=== PATIENT | female | born 2000 ===

== ENCOUNTER 2022-05-16 04:48 | Inpatient (IN) | payer OTHER ==
[~2022-05-16] VITALS: Ht 162 cm; Wt 92.5 kg
[2022-05-16] MEDS ORDERED: MORPHINE SULFATE 5 MG/ML VIAL IVP PRN (05:05)
[2022-05-16] MEDS ORDERED: METHYLERGONOVINE 0.2 MG/ML AMP IM PRN ×2 (05:05→20:20)
[2022-05-16] MEDS ORDERED: ONDANSETRON 4 MG/2 ML VIAL IVP PRN (05:05)
[2022-05-16] MEDS ORDERED: OXYTOCIN 20 UNITS in LACTATED RINGERS 1,000 ML IV SCH ×2 (05:05→09:50)
[2022-05-16] MEDS ORDERED: CARBOPROST 250 MCG/ML AMP IM PRN (05:05)
[2022-05-16] MEDS ORDERED: PRETAB PO (05:12)
[2022-05-16] MEDS: LACTATED RINGERS 1,000 ML IV SCH ×3 (05:42→12:50)
[2022-05-16] MEDS ORDERED: MORPHINE SULFATE 10 MG/ML VIAL ONE ×2 (05:58→09:32)
[2022-05-16] MEDS ORDERED: ONDANSETRON 4 MG/2 ML VIAL ONE (05:59)
[2022-05-16 06:20] VITALS: BP 117/63
[2022-05-16 06:36] LABS: ALBUMIN 2.8 g/dL (3.4-5.0); ANION GAP 16.8 (8-16); CARBON DIOXIDE 22.3 mmol/L (21-32); CREATININE 0.8 mg/dL (0.6-1.3); POTASSIUM 4.1 mmol/L (3.5-5.1); TOTAL BILIRUBIN 0.3 mg/dL (0.0-1.0)
[2022-05-16 06:40] LABS: APPEARANCE,URINE SL CLOUDY (CLEAR); BILIRUBIN,URINE NEGATIVE (NEGATIVE); BLOOD, URINE 3+ (NEGATIVE); COLOR,URINE YELLOW (YELLOW); LEUKOCYTE ESTERASE ,URINE 3+ (NEGATIVE); NITRITE, URINE NEGATIVE (NEGATIVE); UGLUCOSE NEGATIVE (NEGATIVE)
[2022-05-16 06:55] LABS: PROTHROMBIN TIME 9.4 secs (10.8-13.4)
[2022-05-16 06:58] LABS: BASOPHILS % (AUTO) 0.1 % (0.0-2.0); EOSINOPHILS % (AUTO) 0.5 % (0.0-4.0); HEMATOCRIT 40.5 % (36-48); HEMOGLOBIN 13.5 g/dL (12.0-16.0); LYMPHOCYTES # (AUTO) 1.8 K/uL (2.5-16.5); LYMPHOCYTES % (AUTO) 18.9 % (20.5-51.1); MEAN CORPUSCULAR HEMOGLOBIN 28 pg (27-31); MEAN CORPUSCULAR HGB CONC 33 g/dL (33-37); MEAN CORPUSCULAR VOLUME 83.7 fL (80-94); MONOCYTES # (AUTO) 0.6 K/uL (0.8-1.0); MONOCYTES % (AUTO) 6.8 % (1.7-9.3); NEUTROPHILS % (AUTO) 73.7 % (42.2-75.2); PLATELET COUNT (AUTO) 213 K/uL (140-450); RED BLOOD CELL COUNT(AUTO) 4.84 MIL/uL (4.20-5.40); RED CELL DISTRIBUTION WIDTH 14.3 % (11.6-13.7); WHITE BLOOD COUNT (AUTO) 9.5 K/uL (4.5-11.0)
[2022-05-16 07:11] LABS: RBC,URINE 11-20 (MOD) /HPF (0-5); WBC,URINE 16-25 (MOD) /HPF (0-5)
[2022-05-16 07:13] LABS: FINE GRANULAR CASTS,URINE 0-10 /LPF (None Seen)
[2022-05-16] MEDS ORDERED: OXYTOCIN 20 UNITS/LR PREMIX 1,000 ML IV ONE (09:51)
--- NOTE | 2022-05-16 10:14 | NUR ---
PATIENT HAS BEEN SCREENED AND CATEGORIZED LOW NUTRITION RISK. PATIENT WILL BE SEEN WITHIN 7 DAYS OF ADMISSION. 05/23/22 REVIEWED BY [address]
[2022-05-16] MEDS ORDERED: ROPIVACAINE 0.2%/NS PREMIX 200 ML EPI ONE (11:38)
[2022-05-16] MEDS ORDERED: fentaNYL citrate 0.05 MG/ML VIAL ONE (11:39)
[2022-05-16] MEDS ORDERED: LACTATED RINGERS 500 ML IV ONE (19:05)
[2022-05-16] MEDS ORDERED: LACTATED RINGERS 1,000 ML IV SCH (19:05)
[2022-05-16] MEDS ORDERED: OXYTOCIN 10 UNITS/ML VIAL IM PRN (20:20)
[2022-05-16] MEDS ORDERED: MEASLES, MUMPS, AND RUBELLA 1 VIAL SQVAC ONE (20:20)
[2022-05-16] MEDS ORDERED: TEMAZEPAM 15 MG CAP PO PRN (20:20)
[2022-05-16] MEDS ORDERED: BENZOCAINE/MENTHOL 20%-0.5% 60 GM CAN TP PRN (20:20)
[2022-05-16] MEDS ORDERED: DOCUSATE SOD/SENNA 50/8.6 MG 1 TAB PO SCH (21:00)
[2022-05-17] MEDS: HYDROcodone/APAP 5/325 MG 1 TAB TAB PO PRN ×2 (01:11→19:33)
[2022-05-17] MEDS: IBUPROFEN 800 MG TAB PO PRN ×2 (03:51→11:21)
[2022-05-17 05:58] LABS: HEMATOCRIT 31.6 % (36-48); HEMOGLOBIN 10.8 g/dL (12.0-16.0)
[2022-05-18] MEDS ORDERED: MEASLES, MUMPS, AND RUBELLA 1 VIAL SQVAC ONE (04:05)
[2022-05-18] MEDS: HYDROcodone/APAP 5/325 MG 1 TAB TAB PO PRN (04:10)
[2022-05-18] MEDS: IBUPROFEN 800 MG TAB PO PRN (11:52)
[2022-05-18] MEDS ORDERED: DOCU-299 PO (14:50)
[2022-05-18] MEDS ORDERED: IBUP-2213 PO (14:52)
[2022-05-18] MEDS ORDERED: FERR325E14 PO (14:54)
[2022-05-18] MEDS ORDERED: ACET-10509 PO (23:58)
== END 2022-05-18 17:45 | disposition home or self-care (01) | DRG 807 ==
LOC: MLD 04:48 → MFCC 22:00
PROVIDERS: ADMIT Obstetrics & Gynecology; ATTEND Obstetrics & Gynecology
PROC: 10E0XZZ Delivery of Products of Conception, External Approach (ICD-10-PCS; principal; 2022-05-16)
PROC: 0KQM0ZZ Repair Perineum Muscle, Open Approach (ICD-10-PCS; 2022-05-16)
PROC: 3E0R3BZ Introduction of Anesthetic Agent into Spinal Canal, Percutaneous Approach (ICD-10-PCS; 2022-05-16)
PROC: 00HU33Z Insertion of Infusion Device into Spinal Canal, Percutaneous Approach (ICD-10-PCS; 2022-05-16)
DX: O42.92 Full-term premature rupture of membranes, unspecified as to length of time between rupture and onset of labor (principal); Z37.0 Single live birth; O69.1XX0 Labor and delivery complicated by cord around neck, with compression, not applicable or unspecified; O70.1 Second degree perineal laceration during delivery; Z20.822 Contact with and (suspected) exposure to COVID-19; Z3A.38 38 weeks gestation of pregnancy; O90.81 Anemia of the puerperium
CPT/HCPCS: 36415; 80053; 81001; 85018; 85025; 85610; 85730; 86592; 86886; 86900; 86901; 87086; 90707; 90715; J2270; J2405; J2590; J2795; J3010; J7120

== ENCOUNTER 2022-05-18 21:23 | Emergency (ER) | payer MEDICAID, OTHER ==
[~2022-05-18] VITALS: Ht 165.1 cm; Wt 89.8 kg
[~2022-05-18 21:23] MED LIST: DOCU-299 PO; FERR325E14 PO; IBUP-2213 PO; PRETAB PO
[2022-05-18 21:34] VITALS: BP 142/72
--- NOTE | 2022-05-18 21:45 | NUR ---
PT TAKEN TO BED 8
[2022-05-18] MEDS ORDERED: ACETAMINOPHEN 325 MG SUPP RC ONE (22:35)
[2022-05-18] MEDS ORDERED: NACL 0.9% 500 ML IV ONE (22:35)
[2022-05-18] MEDS ORDERED: ACETAMINOPHEN EXTRA STRENGTH 500 MG TAB PO ONE (22:45)
[2022-05-18 22:51] LABS: EOSINOPHILS % (AUTO) 0.1 % (0.0-4.0); HEMATOCRIT 36.6 % (36-48); HEMOGLOBIN 12.4 g/dL (12.0-16.0); LYMPHOCYTES # (AUTO) 0.6 K/uL (2.5-16.5); LYMPHOCYTES % (AUTO) 7.5 % (20.5-51.1); MEAN CORPUSCULAR HEMOGLOBIN 29 pg (27-31); MEAN CORPUSCULAR HGB CONC 34 g/dL (33-37); MEAN CORPUSCULAR VOLUME 84.5 fL (80-94); MONOCYTES % (AUTO) 0.6 % (1.7-9.3); NEUTROPHILS # (AUTO) 7.7 K/uL (1.8-7.7); NEUTROPHILS % (AUTO) 91.8 % (42.2-75.2); PLATELET COUNT (AUTO) 198 K/uL (140-450); RED BLOOD CELL COUNT(AUTO) 4.33 MIL/uL (4.20-5.40); RED CELL DISTRIBUTION WIDTH 14.2 % (11.6-13.7); WHITE BLOOD COUNT (AUTO) 8.4 K/uL (4.5-11.0)
[2022-05-18 23:24] LABS: ALBUMIN 2.6 g/dL (3.4-5.0); ANION GAP 17.7 (8-16); CARBON DIOXIDE 22.1 mmol/L (21-32); CREATININE 0.8 mg/dL (0.6-1.3); POTASSIUM 3.8 mmol/L (3.5-5.1); TOTAL BILIRUBIN 0.4 mg/dL (0.0-1.0)
[2022-05-18] MEDS ORDERED: ACET-10509 PO (23:58)
[2022-05-19] VITALS: BP 104/57
--- NOTE | 2022-05-19 09:05 | NUR ---
LATE ENTRY-IVF/IVP MEDS
== END 2022-05-19 00:02 | disposition home or self-care (01) ==
LOC: MED 21:23
DX: O90.89 Other complications of the puerperium, not elsewhere classified (principal); R10.32 Left lower quadrant pain; O72.1 Other immediate postpartum hemorrhage; Z79.899 Other long term (current) drug therapy; Z79.1 Long term (current) use of non-steroidal anti-inflammatories (NSAID)
CPT/HCPCS: 36415; 80053; 83690; 85025; 99283; J7030